=== PATIENT | male | born 2000 | race Caucasian/White ===

== ENCOUNTER → 2020-11-12 15:20 | Outpatient (CLI) | payer OTHER, SELFPAY ==
--- NOTE | 2020-11-12 | DI.MRI.S_ITS ---
PROCEDURE: MR HEAD/BRAIN WO/W CON INDICATIONS: UNSPECIFIED PSYCHOSIS NOT DUE TO A SUBSTANCE TECHNIQUE: Noncontrast axial T1 spin echo, axial T2 fast spin echo, sagittal and axial FLAIR, coronal T2 fast spin echo, axial gradient echo, axial diffusion and ADC through the brain. After the administration of contrast, axial and coronal 3D VIBE or T1 spin echo with fat saturation through the brain. COMPARISON: None. FINDINGS: Image quality: Excellent. CSF Spaces: Basal cisterns are patent. No extra-axial fluid collections. Ventricles are normal in size and shape. Brain: No midline shift. No intracranial bleeds or masses. No abnormal intracranial enhancement. The brainstem appears normal. Diffusion-weighted images demonstrate no acute ischemic insults. No chronic ischemic insults. Normal intravascular flow voids are present. Skull and face: Calvarial marrow is normal in signal. Orbits appear normal. Sinuses: There is mild mucosal thickening in the bilateral ethmoid and maxillary sinuses. Mastoids are clear. IMPRESSION: 1. Negative evaluation of the brain. No acute process. No recent infarct. 2. Mild sinus disease. Dictated by: Nilam Mariee M.D. on 11/12/2020 at 16:09 Approved by: Nilam Mariee M.D. on 11/12/2020 at 16:11
== END ==
PROVIDERS: Referring Provider Psychiatry & Neurology Psychiatry; Visit Provider Psychiatry & Neurology Psychiatry
DX: F29 Unspecified psychosis not due to a substance or known physiological condition (principal); J32.8 Other chronic sinusitis
CPT/HCPCS: 70553; A9579